=== PATIENT | female | born 1960 | race Caucasian/White ===

== ENCOUNTER 2017-12-14 12:51 | Emergency (ER) | payer BC ==
[2017-12-14] MEDS ORDERED: Sodium Chloride 0.9% 1,000 ML IV ONE (15:14)
[2017-12-14] MEDS ORDERED: Ondansetron 4 MG/2 ML SDV IV ONE (15:14)
[2017-12-14 16:28] LABS: ANION GAP 17.4
[2017-12-14] MEDS ORDERED: Iopamidol 612 MG/ML 75 ML Bottle IVPUSH ONE (16:46)
[2017-12-14] MEDS ORDERED: Piperacillin/Tazobactam 3.375 GM in Sodium Chloride 0.9% 100 ML IV ONE (18:31)
[2017-12-14] MEDS ORDERED: methylPREDNISolone Sodium Succinate 125 MG/2 ML SDV IVPUSH ONE (18:31)
--- NOTE | 2017-12-14 18:42 | EDM.PDOC ---
Scribed by Shikha Kang 12/14/17 [id number] for Ronald Soliman PA ED HPI GENERAL MEDICAL PROBLEM - General Chief Complaint: Gastrointestinal Problem Stated Complaint: FOOD POSIONING Time Seen by Provider: 12/14/17 15:05 Source of Information: Reports: Patient, RN, RN Notes Reviewed History Limitations: Reports: No Limitations - History of Present Illness INITIAL COMMENTS - FREE TEXT/NARRATIVE: Patient is a 57-year-old female who is "sick". She has had nausea and vomiting since Friday evening. She also has weakness. On Friday she had diarrhea. She fell in the shower on Friday. She is also nauseated and generalized body aches. She did drink some Powerade. Onset Date: 12/13/17 Duration: Getting Worse Location: Reports: Generalized Quality: Reports: Ache Severity: Severe Improves with: Reports: None Worsens with: Reports: None Associated Symptoms: Reports: No Other Symptoms Generalized Pain Score (Numeric/FACES): 8 - Related Data Allergies Allergy/AdvReac Type Severity Reaction Status Date / Time codeine Allergy Cannot Verified 12/14/17 14:35 Remember mesalamine [From Apriso] Allergy Vomiting Verified 12/14/17 14:35 Home Meds: Home Meds Acetaminophen [Tylenol Extra Strength] 500 mg PO PRN 04/20/13 [History] Cimetidine 200 mg PO DAILY 04/20/13 [History] Ibuprofen [Advil] 400 mg PO Q6H PRN 04/20/13 [History] Multivitamin [Multivitamins] 1 cap PO DAILY 04/20/13 [History] Omeprazole [Prilosec] 20 mg PO DAILY 04/20/13 [History] buPROPion HCl [Wellbutrin Xl] 150 mg PO DAILY 04/20/13 [History] Past Medical History HEENT History: Reports: None Cardiovascular History: Reports: None Respiratory History: Reports: None Gastrointestinal History: Reports: GERD Other Gastrointestinal History: ulceritive colitis Genitourinary History: Reports: None [employer] History: Reports: None Musculoskeletal History: Reports: None Neurological History: Reports: None Psychiatric History: Reports: None Endocrine/Metabolic History: Reports: None Hematologic History: Reports: None Immunologic History: Reports: None Oncologic (Cancer) History: Reports: None Dermatologic History: Reports: Psoriasis - Infectious Disease History Infectious Disease History: Reports: Chicken Pox - Past Surgical History Head Surgeries/Procedures: Reports: None Social & Family History - Tobacco Use Smoking Status *Q: Never Smoker Second Hand Smoke Exposure: No - Caffeine Use Caffeine Use: Reports: Coffee, Tea - Recreational Drug Use Recreational Drug Use: No ED ROS GENERAL - Review of Systems Review Of Systems: ROS reveals no pertinent complaints other than HPI. ED EXAM, GI/ABD - Physical Exam Exam: See Below Exam Limited By: No Limitations General Appearance: Other (generalized weakness. Pale.) Eyes: Bilateral: Normal Appearance, EOMI Ears: Normal External Exam, Normal Canal, Hearing Grossly Normal, Normal TMs Nose: Normal Inspection, Normal Mucosa, No Blood Throat/Mouth: Other (dry mouth) Head: Atraumatic, Normocephalic Neck: Normal Inspection, Supple, Non-Tender, Full Range of Motion Respiratory/Chest: No Respiratory Distress, Lungs Clear, Normal Breath Sounds, No Accessory Muscle Use, Chest Non-Tender Cardiovascular: Normal Peripheral Pulses, Regular Rate, Rhythm, No Edema, No Gallop, No JVD, No Murmur, No Rub GI/Abdominal Exam: Other (diffuse abdominal pain) (Female) Exam: Deferred Rectal (Female) Exam: Deferred Back Exam: Normal Inspection, Full Range of Motion, NT Extremities: Normal Inspection, Normal Range of Motion, Non-Tender, Normal Capillary Refill, No Pedal Edema Neurological: Alert, Oriented, CN II-XII Intact, Normal Cognition, Normal Gait, Normal Reflexes, No Motor/Sensory Deficits Psychiatric: Normal Affect, Normal Mood Skin Exam: Other (pale) Lymphatic: No Adenopathy Course - Vital Signs Last Recorded V/S: Last Vital Signs Temp 37.2 C 12/14/17 14:29 Pulse 126 H 12/14/17 14:29 Resp 18 12/14/17 14:29 BP 121/81 12/14/17 14:29 Pulse Ox 97 12/14/17 14:29 - Orders/Labs/Meds Orders: Active Orders 24 hr Category Date Time Status Abdomen Pelvis w Cont [CT] Urgent Exams 12/14/17 16:45 Ordered CULTURE BLOOD [BC] Stat Lab 12/14/17 15:38 Received CULTURE BLOOD [BC] Stat Lab 12/14/17 16:25 Ordered CULTURE URINE [RM] Stat Lab 12/14/17 16:44 Ordered UA W/MICROSCOPIC [URIN] Stat Lab 12/14/17 14:57 Ordered Piperacillin/Tazobactam [Zosyn] 3.375 gm Med 12/14/17 18:31 Ordered Sodium Chloride 0.9% [Normal Saline] 100 ml IV ONETIME Medication Orders Piperacillin Sod/Tazobactam (Sod 3.375 gm/ Sodium Chloride) 100 mls @ 200 mls/ hr IV ONETIME ONE Stop: 12/14/17 19:00 Labs: Laboratory Tests 12/14/17 12/14/17 12/14/17 Range/Units 14:57 15:38 15:38 WBC 25.8 H* (5.0-10.0) 10^3/uL RBC 4.96 (4.2-5.4) 10^6/uL Hgb 14.2 (12.0-16.0) g/dL Hct 44.8 (37.0-47.0) % MCV 90.3 (80-100) fL MCH 28.6 (27.0-34.0) pg MCHC 31.7 L (33.0-35.0) g/dL Plt Count 96 L (150-450) 10^3/uL Neut % (Auto) 91.2 H (42.2-75.2) % Lymph % (Auto) 3.0 L (20.5-50.1) % Lares % (Auto) 5.4 (2-8) % Eos % (Auto) 0.3 L (1.0-3.0) % Baso % (Auto) 0.1 (0.0-1.0) % Add Manual Diff Yes Neutrophils % (Manual) 63 (42-75) % Band Neutrophils % 31 % Lymphocytes % (Manual) 1 L (20-50) % Monocytes % (Manual) 5 (2-8) % Platelet Estimate Adequate Clumped Platelets Few Sodium (135-145) mmol/L Potassium (3.6-5.0) mmol/L Chloride (101-111) mmol/L Carbon Dioxide (21.0-31.0) mmol/L Anion Gap BUN (7-18) mg/dL Creatinine (0.6-1.3) mg/dL Est Cr Clr Drug Dosing mL/min Estimated GFR (MDRD) BUN/Creatinine Ratio Glucose (74-105) mg/dL Lactic Acid 1.9 (0.5-2.2) mmol/L Calcium (8.4-10.2) mg/dl Total Bilirubin (0.2-1.0) mg/dL AST (10-42) IU/L ALT (10-60) IU/L Alkaline Phosphatase (42-121) IU/L Total Protein (6.7-8.2) g/dl Albumin (3.2-5.5) g/dl Globulin Albumin/Globulin Ratio Urine Color Yellow (YELLOW) Urine Appearance Slightly cloudy (CLEAR) Urine pH 5.5 (5.0-9.0) Ur Specific [place] >= 1.030 (1.005-1.030) Urine Protein >=300 H (NEGATIVE) Urine Glucose (UA) Negative (NEGATIVE) Urine Ketones 15 H (NEGATIVE) Urine Occult Blood Moderate H (NEGATIVE) Urine Nitrite Negative (NEGATIVE) Urine Bilirubin Negative (NEGATIVE) Urine Urobilinogen 0.2 (0.2-1.0) mg/dL Ur Leukocyte Esterase Negative (NEGATIVE) Urine RBC 10-20 H /HPF Urine WBC 5-10 H (0-5/HPF) /HPF Ur Epithelial Cells Few /HPF Amorphous Sediment Many H (0/HPF) /HPF Urine Bacteria Moderate H (0-FEW/HPF) /HPF Granular Casts Moderate /LPF Urine Mucus Many H /LPF Urine Other See note 12/14/17 Range/Units 15:38 WBC (5.0-10.0) 10^3/uL RBC (4.2-5.4) 10^6/uL Hgb (12.0-16.0) g/dL Hct (37.0-47.0) % MCV (80-100) fL MCH (27.0-34.0) pg MCHC (33.0-35.0) g/dL Plt Count (150-450) 10^3/uL Neut % (Auto) (42.2-75.2) % Lymph % (Auto) (20.5-50.1) % Lares % (Auto) (2-8) % Eos % (Auto) (1.0-3.0) % Baso % (Auto) (0.0-1.0) % Add Manual Diff Neutrophils % (Manual) (42-75) % Band Neutrophils % % Lymphocytes % (Manual) (20-50) % Monocytes % (Manual) (2-8) % Platelet Estimate Clumped Platelets Sodium 127 L (135-145) mmol/L Potassium 3.4 L (3.6-5.0) mmol/L Chloride 91 L (101-111) mmol/L Carbon Dioxide 22.0 (21.0-31.0) mmol/L Anion Gap 17.4 BUN 22 H (7-18) mg/dL Creatinine 1.1 (0.6-1.3) mg/dL Est Cr Clr Drug Dosing 50.77 mL/min Estimated GFR (MDRD) 51 BUN/Creatinine Ratio 20.00 Glucose 128 H (74-105) mg/dL Lactic Acid (0.5-2.2) mmol/L Calcium 8.8 (8.4-10.2) mg/dl Total Bilirubin 0.7 (0.2-1.0) mg/dL AST 47 H (10-42) IU/L ALT 41 (10-60) IU/L Alkaline Phosphatase 64 (42-121) IU/L Total Protein 7.7 (6.7-8.2) g/dl Albumin 3.9 (3.2-5.5) g/dl Globulin 3.8 Albumin/Globulin Ratio 1.03 Urine Color (YELLOW) Urine Appearance (CLEAR) Urine pH (5.0-9.0) Ur Specific [place] (1.005-1.030) Urine Protein (NEGATIVE) Urine Glucose (UA) (NEGATIVE) Urine Ketones (NEGATIVE) Urine Occult Blood (NEGATIVE) Urine Nitrite (NEGATIVE) Urine Bilirubin (NEGATIVE) Urine Urobilinogen (0.2-1.0) mg/dL Ur Leukocyte Esterase (NEGATIVE) Urine RBC /HPF Urine WBC (0-5/HPF) /HPF Ur Epithelial Cells /HPF Amorphous Sediment (0/HPF) /HPF Urine Bacteria (0-FEW/HPF) /HPF Granular Casts /LPF Urine Mucus /LPF Urine Other Meds: Medications Generic Name Dose Route Start Last Admin Trade Name Freq PRN Reason Stop Dose Admin Piperacillin Sod/Tazobactam 100 mls @ 200 mls/hr 12/14/17 18:31 Sod 3.375 gm/ Sodium Chloride IV 12/14/17 19:00 ONETIME ONE Discontinued Medications Generic Name Dose Route Start Last Admin Trade Name Freq PRN Reason Stop Dose Admin Sodium Chloride 1,000 mls @ 999 mls/hr 12/14/17 15:14 08/26/18 16:14 Normal Saline IV 12/14/17 16:14 999 mls/hr .BOLUS ONE Administration Iopamidol 75 ml 12/14/17 16:46 12/14/17 17:34 Isovue-300 (61%) IVPUSH 12/14/17 16:47 100 ml ONETIME ONE Administration Methylprednisolone Sodium Succinate 125 mg 12/14/17 18:31 Solu-Medrol IVPUSH 12/14/17 18:32 ONETIME ONE Ondansetron HCl 4 mg 12/14/17 15:14 12/14/17 16:12 Zofran IV 12/14/17 15:15 4 mg ONETIME ONE Administration Departure - Departure Time of Disposition: 18:38 Disposition: DC/Tfer to Acute Hospital 02 Condition: Poor Clinical Impression: Leukocytosis Qualifiers: Leukocytosis type: bandemia Qualified Code(s): D72.825 - Bandemia Ulcerative colitis Qualifiers: Ulcerative colitis location: ulcerative rectosigmoiditis Digestive disease complication type: unspecified complication Qualified Code(s): 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 Neves ( Hospitalist with [facility] in [place]). Dr. Neves accepted the patient for continued evaluation and management. The patient will be transported by [facility]. - My Orders Last 24 Hours: My Active Orders 12/14/17 14:57 UA W/MICROSCOPIC [URIN] Stat 12/14/17 15:38 CULTURE BLOOD [BC] Stat 12/14/17 16:25 CULTURE BLOOD [BC] Stat 12/14/17 16:44 CULTURE URINE [RM] Stat 12/14/17 16:45 Abdomen Pelvis w Cont [CT] Urgent 12/14/17 18:31 Piperacillin/Tazobactam [Zosyn] 3.375 gm Sodium Chloride 0.9% [Normal Saline] 100 ml IV ONETIME - Assessment/Plan Last 24 Hours: My Active Orders 12/14/17 14:57 UA W/MICROSCOPIC [URIN] Stat 12/14/17 15:38 CULTURE BLOOD [BC] Stat 12/14/17 16:25 CULTURE BLOOD [BC] Stat 12/14/17 16:44 CULTURE URINE [RM] Stat 12/14/17 16:45 Abdomen Pelvis w Cont [CT] Urgent 12/14/17 18:31 Piperacillin/Tazobactam [Zosyn] 3.375 gm Sodium Chloride 0.9% [Normal Saline] 100 ml IV ONETIME I have read and agree with the documentation that has been completed regarding this visit. By signing this record, I attest that the documentation was completed in my physical presence and is an accurate record of the encounter.
== END 2017-12-14 19:20 ==
LOC: DL.ED 12:51
DX: K51.319 Ulcerative (chronic) rectosigmoiditis with unspecified complications (principal); D72.825 Bandemia; Z88.5 Allergy status to narcotic agent
CPT/HCPCS: 36415; 74177; 80053; 81001; 83605; 85025; 87040; 87086; 87088; 87186; 96361; 96365; 96375; 99285; J2405; J2543; J2930; J7030; J7050; Q9967; 87077